=== PATIENT | male | born 1950 | race African-American/Black ===

== ENCOUNTER 2020-08-18 12:31 | Inpatient (IN) | payer MEDICARE, MEDICAID ==
[~2020-08-18] VITALS: Ht 188 cm; Wt 82.6 kg
[2020-08-18] MEDS ORDERED: AZITHROMYCIN 500MG/ 250ML 250 ML IV ONE (13:15)
[2020-08-18] MEDS ORDERED: methylPREDNISolone SOD SUCC 125 MG/2 ML VL IV ONE (13:15)
[2020-08-18 15:46] LABS: Basophils # (auto) 0.1 10 ^3/uL (0-0.2); Basophils % (auto) 0.4 % (0.0-2.0); Eosinophils # (auto) 0 10 ^3/uL (0-0.8); Hematocrit 38.5 % (41.0-53.0); Hemoglobin 12.9 g/dL (13.5-17.5); Lymphocytes # (auto) 0.6 10 ^3/uL (0.4-5.4); Lymphocytes % (auto) 4.8 % (10.0-50.0); Mean Corpuscular Hemoglobin 30.9 pg (28.0-32.0); Mean Corpuscular Hgb Conc. 33.6 g/dL (32.0-36.0); Monocytes # (auto) 0.7 10 ^3/uL (0-1.3); Monocytes % (auto) 5.5 % (0.0-12.0); Neutrophils # (auto) 11.7 10 ^3/uL (1.6-8.6); Neutrophils % (auto) 89.3 % (37.0-80.0); Nucleated Red Blood Cells % 0.5 %; Platelet Count (auto) 256 10^3/uL (140-450); Red Blood Cells 4.18 10^6/uL (4.5-5.90); Red Cell Distribution Width 14.5 % (11.8-14.3); White Blood Cell 13.1 10^3/uL (4.4-10.8)
[2020-08-18 16:30] LABS: Alanine Aminotransferase 113 U/L (16-61); Albumin 2.4 g/dL (3.4-5.0); Alkaline Phosphatase 277 U/L (45-117); Anion Gap 6 (5-15); Aspartate Aminotransferase 148 U/L (15-37); BUN/Creatinine Ratio 23.9; Bilirubin, Total 1.6 mg/dL (0.2-1.0); Blood Alcohol < 3.0 mg/dL (0-5); Blood Urea Nitrogen 26 mg/dL (7-18); Calcium 8.3 mg/dL (8.5-10.1); Carbon Dioxide 27 mmol/L (21-32); Chloride 101 mmol/L (98-107); GFR African American 87 mL/min; GFR Non-African American 72 mL/min; Glucose 133 mg/dL (74-106); Potassium 4.1 mmol/L (3.5-5.1); Sodium 134 mmol/L (136-145)
[2020-08-18] MEDS ORDERED: cefTRIAXone 1GM/50ML D5W 50 ML IV SCH (17:27)
[2020-08-18] MEDS ORDERED: REMDESIVIR PER PHARMACY 0 ML IV SCH (17:30)
[2020-08-18] MEDS ORDERED: ACETAMINOPHEN 500 MG TAB PO PRN (17:30)
[2020-08-18] MEDS ORDERED: IOHEXOL 350 MG/ML 100ML IJ ONE (17:30)
[2020-08-18] MEDS ORDERED: NITROGLYCERIN 0.4 MG SL TAB SL PRN (17:30)
[2020-08-18] MEDS ORDERED: ONDANSETRON HCL 4 MG/2 ML VIAL IV PRN (17:30)
[2020-08-18] MEDS ORDERED: MORPHINE SULF INJ 2 MG/ML SYRINGE 1ML IV PRN (17:30)
[2020-08-18] MEDS ORDERED: HYDROcodone-ACET 5/325MG TAB PO PRN (17:30)
[2020-08-18] MEDS ORDERED: ENOXAPARIN SOD 80 MG/0.8ML SYRINGE SC SCH (17:59)
[2020-08-18] MEDS: BUDESONIDE (INHALATION) 180 MCG IH IN SCH (19:55)
[2020-08-18] MEDS: ALBUTEROL SULF HFA 90MCG INH 200DOSE IN PRN (19:59)
[2020-08-18 21:30] LABS: Lactate Dehydrogenase 640 U/L (87-241)
[2020-08-18 21:35] LABS: CRP High Sensitivity > 19.0 mg/dL (< 0.3)
[2020-08-19] MEDS ORDERED: LORazepam 2MG/ML-1ML VIAL ONE ×2 (07:05→14:04)
[2020-08-19] MEDS ORDERED: HALOPERIDOL LACTATE 5 MG/ML INJ VIAL ONE (07:05)
[2020-08-19] MEDS ORDERED: diphenhdrAMINE HCL 50 MG/1 ML VL ONE (07:05)
[2020-08-19] MEDS ORDERED: LORazepam 2MG/ML-1ML VIAL IM ONE (07:15)
[2020-08-19] MEDS ORDERED: diphenhdrAMINE HCL 50 MG/1 ML VL IM ONE (07:15)
[2020-08-19] MEDS ORDERED: HALOPERIDOL LACTATE 5 MG/ML INJ VIAL IM ONE (07:15)
[2020-08-19 08:01] LABS: Hematocrit 38.3 % (41.0-53.0); Mean Corpuscular Hemoglobin 30.9 pg (28.0-32.0); Mean Corpuscular Hgb Conc. 33.8 g/dL (32.0-36.0); Mean Corpuscular Volume 91.3 fL (80.0-100.0); Platelet Count (auto) 228 10^3/uL (140-450); Red Blood Cells 4.19 10^6/uL (4.5-5.90); Red Cell Distribution Width 14.6 % (11.8-14.3); White Blood Cell 15.9 10^3/uL (4.4-10.8)
[2020-08-19 08:07] LABS: Basophils % (manual) 0 (0.0-2.0); Blast Cells 0; Eosinophils % (manual) 0 (0-7); Myelocytes % 0; Promyelocytes % 0; Reactive Lymphocytes 0
[2020-08-19] MEDS: FAMOTIDINE 20 MG TAB PO SCH (08:36)
[2020-08-19] MEDS: DexAMETHasone SOD PHOS 10MG/1ML VIAL INJ IV SCH (08:36)
[2020-08-19] MEDS: CHOLECALCIFEROL (VITD3) 2,000 UNIT CAP PO SCH (08:36)
[2020-08-19] MEDS: AZITHROMYCIN 500MG/ 250ML 250 ML IV SCH (08:36)
[2020-08-19] MEDS: ZINC SULFATE 220mg CAP or TAB PO SCH (08:36)
[2020-08-19] MEDS: ASCORBIC ACID 1,000 MG TAB PO SCH (08:36)
[2020-08-19 08:38] LABS: Calcium 8.7 mg/dL (8.5-10.1)
[2020-08-19 08:40] LABS: BUN/Creatinine Ratio 28.3
[2020-08-19 09:06] LABS: Band Neutrophils % (manual) 6; Lymphocytes % (manual) 6 (10.0-50.0); Metamyelocytes % 4; Monocytes % (manual) 6 (0-12)
[2020-08-19] MEDS: ALBUTEROL SULF HFA 90MCG INH 200DOSE IN PRN ×2 (09:52→20:54)
[2020-08-19] MEDS: BUDESONIDE (INHALATION) 180 MCG IH IN SCH ×3 (09:52→22:00)
[2020-08-19 10:48] LABS: Urine Bacteria NONE SEEN /hpf (None Seen); Urine Blood 2+ /uL (Negative); Urine Mucus FEW (None Seen); Urine Specific Gravity 1.035 (1.001-1.035); Urine WBC 2 /hpf (0 - 3)
[2020-08-19 12:34] LABS: Cholesterol 229 mg/dL (< 200); Triglycerides 321 mg/dL (< 150)
[2020-08-19 12:37] LABS: HDL Cholesterol 15 mg/dL (40-59); LDL Cholesterol 132 mg/dL (< 100)
[2020-08-19 12:41] LABS: Amphetamine Screen, Urine NEGATIVE (NEGATIVE); Barbiturate Scree,Urine NEGATIVE (NEGATIVE); Benzodiazephine Screen, Urine NEGATIVE (NEGATIVE); Cannabinoid Screen, Urine NEGATIVE (NEGATIVE); Cocaine Screen, Urine NEGATIVE (NEGATIVE); Opiate Scree,Urine NEGATIVE (NEGATIVE); Phencyclidine Screen, Urine NEGATIVE (NEGATIVE)
[2020-08-19] MEDS ORDERED: LORazepam 2MG/ML-1ML VIAL IV ONE (14:30)
[2020-08-19] MEDS ORDERED: REMDESIVIR 200 MG in NS 210ml LOADING DOSE ADULT IV ONE (15:00)
[2020-08-19] MEDS: ENOXAPARIN SOD 80 MG/0.8ML SYRINGE SC SCH (15:20)
[2020-08-19] MEDS: LORazepam 2MG/ML-1ML VIAL IV PRN (23:05)
[2020-08-20] MEDS ORDERED: cefTRIAXone 1GM/50ML D5W 50 ML IV SCH (02:00)
[2020-08-20] MEDS: ENOXAPARIN SOD 80 MG/0.8ML SYRINGE SC SCH ×2 (04:00→15:30)
[2020-08-20] MEDS: LORazepam 2MG/ML-1ML VIAL IV PRN ×2 (05:14→16:59)
[2020-08-20] MEDS: BUDESONIDE (INHALATION) 180 MCG IH IN SCH ×2 (06:25→20:18)
[2020-08-20 07:08] LABS: Basophils # (auto) 0 10 ^3/uL (0-0.2); Basophils % (auto) 0.1 % (0.0-2.0); Eosinophils # (auto) 0 10 ^3/uL (0-0.8); Hematocrit 39.9 % (41.0-53.0); Hemoglobin 13.3 g/dL (13.5-17.5); Lymphocytes # (auto) 0.5 10 ^3/uL (0.4-5.4); Lymphocytes % (auto) 2.6 % (10.0-50.0); Mean Corpuscular Hemoglobin 30.4 pg (28.0-32.0); Mean Corpuscular Hgb Conc. 33.3 g/dL (32.0-36.0); Mean Corpuscular Volume 91.3 fL (80.0-100.0); Monocytes # (auto) 0.6 10 ^3/uL (0-1.3); Monocytes % (auto) 3.3 % (0.0-12.0); Neutrophils # (auto) 17.4 10 ^3/uL (1.6-8.6); Platelet Count (auto) 269 10^3/uL (140-450); Red Blood Cells 4.37 10^6/uL (4.5-5.90); Red Cell Distribution Width 14.6 % (11.8-14.3); White Blood Cell 18.5 10^3/uL (4.4-10.8)
[2020-08-20 07:39] LABS: Albumin 2.3 g/dL (3.4-5.0); Calcium 8.3 mg/dL (8.5-10.1); Potassium 3.9 mmol/L (3.5-5.1)
[2020-08-20] MEDS: DexAMETHasone SOD PHOS 10MG/1ML VIAL INJ IV SCH (07:45)
[2020-08-20] MEDS: AZITHROMYCIN 500MG/ 250ML 250 ML IV SCH (07:45)
[2020-08-20] MEDS: ZINC SULFATE 220mg CAP or TAB PO SCH (07:45)
[2020-08-20] MEDS: ASCORBIC ACID 1,000 MG TAB PO SCH (07:45)
[2020-08-20] MEDS: FAMOTIDINE 20 MG TAB PO SCH (07:45)
[2020-08-20] MEDS: CHOLECALCIFEROL (VITD3) 2,000 UNIT CAP PO SCH (07:45)
[2020-08-20 07:46] LABS: BUN/Creatinine Ratio 31.4; Bilirubin, Total 0.9 mg/dL (0.2-1.0); Total Protein 6.7 g/dL (6.4-8.2)
[2020-08-20] MEDS ORDERED: FUROSEMIDE 20 MG/2 ML VIAL IV SCH (10:00)
[2020-08-20] MEDS ORDERED: FUROSEMIDE 40 MG/4 ML VIAL ONE (10:22)
[2020-08-20] MEDS: FUROSEMIDE 40 MG/4 ML VIAL IV SCH (10:30)
[2020-08-20] MEDS: DOXYCYCLINE 100MG/250ML 250 ML IV SCH ×2 (10:41→21:30)
[2020-08-20 12:11] LABS: INR 1.48 (0.9-1.15); Partial Thromboplastin Time 26.2 sec (23.0-31.2)
[2020-08-20] MEDS: REMDESIVIR 100mg 100 MG in SODIUM CHL 0.9% 230 ML IV SCH (15:27)
[2020-08-20] MEDS: PIPERACILLIN-TAZOB 3.375GM 100 ML IV SCH ×2 (15:28→22:45)
[2020-08-20 17:59] VITALS: BP 134/81
[2020-08-20] MEDS ORDERED: LORazepam 2MG/ML-1ML VIAL ONE (19:51)
[2020-08-20] MEDS ORDERED: diphenhdrAMINE HCL 50 MG/1 ML VL ONE (19:51)
[2020-08-20] MEDS: ALBUTEROL SULF HFA 90MCG INH 200DOSE IN PRN (20:18)
[2020-08-21] VITALS: BP 120/75
[2020-08-21] MEDS: LORazepam 2MG/ML-1ML VIAL IV PRN ×3 (03:06→21:07)
[2020-08-21] MEDS: ENOXAPARIN SOD 80 MG/0.8ML SYRINGE SC SCH ×2 (04:08→15:21)
[2020-08-21] MEDS: PIPERACILLIN-TAZOB 3.375GM 100 ML IV SCH ×2 (05:50→21:42)
[2020-08-21 07:08] LABS: Hematocrit 38.6 % (41.0-53.0); Hemoglobin 12.9 g/dL (13.5-17.5); Mean Corpuscular Hemoglobin 30.6 pg (28.0-32.0); Mean Corpuscular Hgb Conc. 33.4 g/dL (32.0-36.0); Mean Corpuscular Volume 91.5 fL (80.0-100.0); Platelet Count (auto) 308 10^3/uL (140-450); Red Blood Cells 4.21 10^6/uL (4.5-5.90); Red Cell Distribution Width 14.8 % (11.8-14.3); White Blood Cell 14.9 10^3/uL (4.4-10.8)
[2020-08-21 07:51] LABS: Basophils % (manual) 0 (0.0-2.0); Blast Cells 0; Eosinophils % (manual) 0 (0-7); Metamyelocytes % 0; Promyelocytes % 0; Reactive Lymphocytes 0
[2020-08-21 07:52] VITALS: BP 125/82
[2020-08-21 08:02] LABS: Potassium 3.8 mmol/L (3.5-5.1)
[2020-08-21 08:03] VITALS: BP 125/82
[2020-08-21 08:15] LABS: Albumin 2.3 g/dL (3.4-5.0); BUN/Creatinine Ratio 27.2; Bilirubin, Total 0.9 mg/dL (0.2-1.0); Calcium 7.8 mg/dL (8.5-10.1); Total Protein 6.3 g/dL (6.4-8.2)
[2020-08-21] MEDS: ZINC SULFATE 220mg CAP or TAB PO SCH (09:55)
[2020-08-21] MEDS: FAMOTIDINE 20 MG TAB PO SCH (09:55)
[2020-08-21] MEDS: CHOLECALCIFEROL (VITD3) 2,000 UNIT CAP PO SCH (09:56)
[2020-08-21] MEDS: ASCORBIC ACID 1,000 MG TAB PO SCH (09:56)
[2020-08-21] MEDS: BUDESONIDE (INHALATION) 180 MCG IH IN SCH ×2 (10:00→21:45)
[2020-08-21] MEDS: DexAMETHasone SOD PHOS 10MG/1ML VIAL INJ IV SCH (10:01)
[2020-08-21] MEDS: FUROSEMIDE 40 MG/4 ML VIAL IV SCH (10:02)
[2020-08-21] MEDS: DOXYCYCLINE 100MG/250ML 250 ML IV SCH (10:03)
[2020-08-21 12:01] LABS: Band Neutrophils % (manual) 21; Lymphocytes % (manual) 7 (10.0-50.0); Monocytes % (manual) 1 (0-12); Myelocytes % 5
[2020-08-21] MEDS ORDERED: ACETAMINOPHEN 650 mg PER 20.3 mL UD PO ONE (13:30)
[2020-08-21] MEDS ORDERED: diphenhdrAMINE HCL 50 MG/1 ML VL IV ONE (13:30)
[2020-08-21] MEDS ORDERED: methylPREDNISolone SOD SUCC 40 MG/ML VL IV ONE (13:30)
[2020-08-21] MEDS ORDERED: TOCILIZUMAB 400 MG in SODIUM CHL 0.9% 80 ML IV ONE (14:00)
[2020-08-21] MEDS ORDERED: ACETAMINOPHEN 650 MG RECT SUPP PR ONE (14:00)
[2020-08-21] MEDS: REMDESIVIR 100mg 100 MG in SODIUM CHL 0.9% 230 ML IV SCH (15:06)
[2020-08-21] MEDS: MORPHINE SULF INJ 2 MG/ML SYRINGE 1ML IV PRN (15:20)
[2020-08-21] MEDS ORDERED: LIDOCAINE 1% (LOCAL ANESTH.) PF 5ml SDV ID ONE (16:15)
[2020-08-21 16:24] VITALS: BP 145/61
[2020-08-21] MEDS ORDERED: AMINO ACID INFUSION IN D10W 1,000 ML IV NR (21:30)
[2020-08-21] MEDS: SODIUM CHLOR 0.9% PF (SALINE LOCK) 10ML VIAL/SYR IV SCH (21:43)
[2020-08-21 21:45] LABS: Folate (Folic Acid) 8.04 ng/mL (5.38-24)
[2020-08-22] VITALS: BP_SYST 122; BP_SYST 124; BP_DIAS 63; BP_DIAS 74
[2020-08-22] MEDS ORDERED: DEXTROSE (50%) 50ML SYRG IV SCH
[2020-08-22] MEDS: InsuLIN REG 1unit/0.01ml Soln (100units/ml) SC SCH ×4 (00:52→17:06)
[2020-08-22] MEDS: LORazepam 2MG/ML-1ML VIAL IV PRN (05:29)
[2020-08-22] MEDS: PIPERACILLIN-TAZOB 3.375GM 100 ML IV SCH ×2 (05:29→15:27)
[2020-08-22] MEDS: ENOXAPARIN SOD 80 MG/0.8ML SYRINGE SC SCH ×2 (05:30→17:06)
[2020-08-22] MEDS: ACCU-CHEK COMFORT CURVE STRIP VI SCH ×4 (05:30→17:06)
[2020-08-22] MEDS: ALBUTEROL SULF HFA 90MCG INH 200DOSE IN PRN ×2 (06:53→21:22)
[2020-08-22] MEDS: BUDESONIDE (INHALATION) 180 MCG IH IN SCH ×2 (06:53→21:22)
[2020-08-22 07:35] LABS: Hematocrit 41.8 % (41.0-53.0); Hemoglobin 13.8 g/dL (13.5-17.5); Mean Corpuscular Hemoglobin 30.4 pg (28.0-32.0); Mean Corpuscular Volume 92.1 fL (80.0-100.0); Platelet Count (auto) 359 10^3/uL (140-450); Red Blood Cells 4.54 10^6/uL (4.5-5.90); Red Cell Distribution Width 15.2 % (11.8-14.3); White Blood Cell 11.6 10^3/uL (4.4-10.8)
[2020-08-22 07:45] LABS: Basophils % (manual) 0 (0.0-2.0); Blast Cells 0; Eosinophils % (manual) 0 (0-7); Promyelocytes % 0; Reactive Lymphocytes 0
[2020-08-22] MEDS: MORPHINE SULF INJ 2 MG/ML SYRINGE 1ML IV PRN (07:54)
[2020-08-22 07:56] LABS: Albumin 2.5 g/dL (3.4-5.0); Calcium 8.3 mg/dL (8.5-10.1); Magnesium 3.5 mg/dL (1.6-2.6); Potassium 4.1 mmol/L (3.5-5.1)
[2020-08-22 08:00] VITALS: BP 119/90
[2020-08-22 08:04] LABS: BUN/Creatinine Ratio 29.6; Bilirubin, Total 0.9 mg/dL (0.2-1.0); Phosphorus 4.4 mg/dL (2.5-4.90); Pre Albumin 22.2 mg/dL (20.0-40.0); Total Protein 6.9 g/dL (6.4-8.2)
[2020-08-22 09:38] LABS: Band Neutrophils % (manual) 2; Lymphocytes % (manual) 7 (10.0-50.0); Metamyelocytes % 1; Monocytes % (manual) 3 (0-12); Myelocytes % 2
[2020-08-22] MEDS ORDERED: ACETAMINOPHEN 650 mg PER 20.3 mL UD PO ONE (10:00)
[2020-08-22] MEDS: ASCORBIC ACID 1,000 MG TAB PO SCH (10:00)
[2020-08-22] MEDS ORDERED: diphenhdrAMINE HCL 50 MG/1 ML VL IV ONE (10:00)
[2020-08-22] MEDS: ZINC SULFATE 220mg CAP or TAB PO SCH (10:00)
[2020-08-22] MEDS: CHOLECALCIFEROL (VITD3) 2,000 UNIT CAP PO SCH (10:00)
[2020-08-22] MEDS ORDERED: ACETAMINOPHEN 650 MG RECT SUPP PR ONE (10:00)
[2020-08-22] MEDS ORDERED: TPN PER PHARMACY 0 ML IV SCH (10:30)
[2020-08-22] MEDS ORDERED: TOCILIZUMAB 400 MG in SODIUM CHL 0.9% 80 ML IV ONE (10:30)
[2020-08-22] MEDS: HALOPERIDOL LACTATE 5 MG/ML INJ VIAL IM PRN ×2 (10:40→20:53)
[2020-08-22] MEDS: FUROSEMIDE 40 MG/4 ML VIAL IV SCH (10:44)
[2020-08-22] MEDS: FAMOTIDINE (10MG/ML) 2ML VL IV SCH (10:45)
[2020-08-22] MEDS: DexAMETHasone SOD PHOS 10MG/1ML VIAL INJ IV SCH (10:46)
[2020-08-22] MEDS: SODIUM CHLOR 0.9% PF (SALINE LOCK) 10ML VIAL/SYR IV SCH ×2 (11:04→21:25)
[2020-08-22 16:00] VITALS: BP 97/63
[2020-08-22] MEDS: REMDESIVIR 100mg 100 MG in SODIUM CHL 0.9% 230 ML IV SCH (17:05)
[2020-08-22] MEDS: TPN PER PHARMACY IV NR ×5 (21:22)
[2020-08-23] MEDS: PIPERACILLIN-TAZOB 3.375GM 100 ML IV SCH ×4 (00:17→21:38)
[2020-08-23] MEDS: ENOXAPARIN SOD 80 MG/0.8ML SYRINGE SC SCH ×2 (04:59→17:12)
[2020-08-23] MEDS: InsuLIN REG 1unit/0.01ml Soln (100units/ml) SC SCH ×5 (06:00→20:29)
[2020-08-23] MEDS: ACCU-CHEK COMFORT CURVE STRIP VI SCH ×5 (06:22→20:23)
[2020-08-23 07:32] LABS: Potassium 4.6 mmol/L (3.5-5.1)
[2020-08-23 07:40] LABS: Albumin 2.5 g/dL (3.4-5.0); BUN/Creatinine Ratio 30.3; Bilirubin, Total 0.9 mg/dL (0.2-1.0); Calcium 7.9 mg/dL (8.5-10.1); Magnesium 3.3 mg/dL (1.6-2.6); Phosphorus 3.7 mg/dL (2.5-4.90); Total Protein 6.4 g/dL (6.4-8.2)
[2020-08-23 08:00] VITALS: BP 120/65
[2020-08-23] MEDS: HALOPERIDOL LACTATE 5 MG/ML INJ VIAL IM PRN (08:27)
[2020-08-23] MEDS: FAMOTIDINE (10MG/ML) 2ML VL IV SCH (09:13)
[2020-08-23] MEDS: ZINC SULFATE 220mg CAP or TAB PO SCH (09:13)
[2020-08-23] MEDS: FUROSEMIDE 40 MG/4 ML VIAL IV SCH (09:13)
[2020-08-23] MEDS: DexAMETHasone SOD PHOS 10MG/1ML VIAL INJ IV SCH (09:13)
[2020-08-23] MEDS: CHOLECALCIFEROL (VITD3) 2,000 UNIT CAP PO SCH (09:13)
[2020-08-23] MEDS: SODIUM CHLOR 0.9% PF (SALINE LOCK) 10ML VIAL/SYR IV SCH ×2 (09:14→21:30)
[2020-08-23] MEDS: ASCORBIC ACID 1,000 MG TAB PO SCH (09:14)
[2020-08-23] MEDS: BUDESONIDE (INHALATION) 180 MCG IH IN SCH ×2 (10:00→19:53)
[2020-08-23] MEDS ORDERED: DEXTROSE (50%) 50ML SYRG IV PRN (16:00)
[2020-08-23 16:06] VITALS: BP 122/63
[2020-08-23] MEDS: REMDESIVIR 100mg 100 MG in SODIUM CHL 0.9% 230 ML IV SCH (17:13)
[2020-08-23] MEDS: TPN PER PHARMACY IV NR ×5 (19:58)
[2020-08-23] MEDS ORDERED: TPN PER PHARMACY IV NR ×7 (20:00)
[2020-08-24] VITALS: BP 126/83
[2020-08-24] MEDS: ACCU-CHEK COMFORT CURVE STRIP VI SCH ×5 (00:27→23:38)
[2020-08-24] MEDS: InsuLIN REG 1unit/0.01ml Soln (100units/ml) SC SCH ×5 (00:30→23:38)
[2020-08-24] MEDS: ENOXAPARIN SOD 80 MG/0.8ML SYRINGE SC SCH ×2 (03:49→16:22)
[2020-08-24] MEDS: PIPERACILLIN-TAZOB 3.375GM 100 ML IV SCH ×3 (05:31→21:51)
[2020-08-24] MEDS: BUDESONIDE (INHALATION) 180 MCG IH IN SCH ×2 (06:08→19:47)
[2020-08-24 08:00] VITALS: BP 108/64
[2020-08-24] MEDS: CHOLECALCIFEROL (VITD3) 2,000 UNIT CAP PO SCH (10:00)
[2020-08-24] MEDS: FUROSEMIDE 40 MG/4 ML VIAL IV SCH (10:00)
[2020-08-24] MEDS: ASCORBIC ACID 1,000 MG TAB PO SCH (10:00)
[2020-08-24] MEDS: ZINC SULFATE 220mg CAP or TAB PO SCH (10:00)
[2020-08-24] MEDS ORDERED: DEXTROSE (50%) 50ML SYRG IV PRN (12:00)
[2020-08-24] MEDS ORDERED: ERGOCALCIFEROL 50,000 UNIT(1.25MG) CAP PO ONE (12:15)
[2020-08-24] MEDS: HALOPERIDOL LACTATE 5 MG/ML INJ VIAL IM PRN (12:43)
[2020-08-24] MEDS: SODIUM CHLOR 0.9% PF (SALINE LOCK) 10ML VIAL/SYR IV SCH ×2 (12:46→21:51)
[2020-08-24] MEDS: DexAMETHasone SOD PHOS 10MG/1ML VIAL INJ IV SCH (12:47)
[2020-08-24] MEDS: FAMOTIDINE (10MG/ML) 2ML VL IV SCH (12:47)
[2020-08-24 12:51] LABS: Hemoglobin 13.5 g/dL (13.5-17.5)
[2020-08-24 12:53] LABS: Hematocrit 46.5 % (41.0-53.0); Mean Corpuscular Hemoglobin 31.7 pg (28.0-32.0); Mean Corpuscular Volume 109.4 fL (80.0-100.0); Platelet Count (auto) 265 10^3/uL (140-450); Red Blood Cells 4.25 10^6/uL (4.5-5.90); Red Cell Distribution Width 17.2 % (11.8-14.3); White Blood Cell 8.9 10^3/uL (4.4-10.8)
[2020-08-24 12:54] LABS: Basophils % (manual) 0 (0.0-2.0); Blast Cells 0; Metamyelocytes % 0; Promyelocytes % 0; Reactive Lymphocytes 0
[2020-08-24 14:35] LABS: Band Neutrophils % (manual) 2; Eosinophils % (manual) 4 (0-7); Lymphocytes % (manual) 7 (10.0-50.0); Monocytes % (manual) 1 (0-12); Myelocytes % 1
[2020-08-24 15:46] VITALS: BP 111/72
[2020-08-24 17:07] LABS: Albumin 2.5 g/dL (3.4-5.0); BUN/Creatinine Ratio 30.1; Magnesium 2.8 mg/dL (1.6-2.6)
[2020-08-24 17:12] LABS: Phosphorus 3.1 mg/dL (2.5-4.90); Total Protein 6.5 g/dL (6.4-8.2)
[2020-08-24] MEDS: ALBUTEROL SULF HFA 90MCG INH 200DOSE IN PRN (19:49)
[2020-08-25] VITALS: BP 95/53
[2020-08-25] MEDS: ENOXAPARIN SOD 80 MG/0.8ML SYRINGE SC SCH ×2 (04:13→18:05)
[2020-08-25] MEDS: InsuLIN REG 1unit/0.01ml Soln (100units/ml) SC SCH ×3 (05:58→18:05)
[2020-08-25] MEDS: ACCU-CHEK COMFORT CURVE STRIP VI SCH ×3 (05:58→18:00)
[2020-08-25] MEDS: PIPERACILLIN-TAZOB 3.375GM 100 ML IV SCH ×3 (05:58→21:34)
[2020-08-25 08:00] VITALS: BP 92/47
[2020-08-25 08:29] LABS: Hematocrit 42.1 % (41.0-53.0); Mean Corpuscular Hgb Conc. 33.1 g/dL (32.0-36.0); Mean Corpuscular Volume 93.5 fL (80.0-100.0); Platelet Count (auto) 282 10^3/uL (140-450); Red Blood Cells 4.51 10^6/uL (4.5-5.90); Red Cell Distribution Width 15.2 % (11.8-14.3); White Blood Cell 8.9 10^3/uL (4.4-10.8)
[2020-08-25 08:45] LABS: BUN/Creatinine Ratio 29.4; Calcium 8.4 mg/dL (8.5-10.1); Potassium 4.1 mmol/L (3.5-5.1)
[2020-08-25 08:51] LABS: Basophils % (manual) 0 (0.0-2.0); Blast Cells 0; Metamyelocytes % 0; Promyelocytes % 0; Reactive Lymphocytes 0
[2020-08-25] MEDS: ASCORBIC ACID 1,000 MG TAB PO SCH (10:00)
[2020-08-25] MEDS: CHOLECALCIFEROL (VITD3) 2,000 UNIT CAP PO SCH (10:00)
[2020-08-25] MEDS: FUROSEMIDE 40 MG/4 ML VIAL IV SCH (10:00)
[2020-08-25] MEDS: ZINC SULFATE 220mg CAP or TAB PO SCH (10:00)
[2020-08-25] MEDS: BUDESONIDE (INHALATION) 180 MCG IH IN SCH ×2 (11:15→19:53)
[2020-08-25] MEDS: DexAMETHasone SOD PHOS 10MG/1ML VIAL INJ IV SCH (11:15)
[2020-08-25] MEDS: SODIUM CHLOR 0.9% PF (SALINE LOCK) 10ML VIAL/SYR IV SCH ×2 (11:18→21:34)
[2020-08-25] MEDS: FAMOTIDINE (10MG/ML) 2ML VL IV SCH (11:18)
[2020-08-25 13:01] LABS: Lymphocytes % (manual) 5 (10.0-50.0)
[2020-08-25 13:02] LABS: Band Neutrophils % (manual) 2; Eosinophils % (manual) 4 (0-7); Monocytes % (manual) 5 (0-12); Myelocytes % 1
[2020-08-25 16:00] VITALS: BP 90/58
[2020-08-25] MEDS: ALBUTEROL SULF HFA 90MCG INH 200DOSE IN PRN (19:53)
[2020-08-26] VITALS: BP 94/60
[2020-08-26] MEDS: ACCU-CHEK COMFORT CURVE STRIP VI SCH ×4 (00:24→18:28)
[2020-08-26] MEDS: ENOXAPARIN SOD 80 MG/0.8ML SYRINGE SC SCH ×2 (04:30→15:41)
[2020-08-26] MEDS: PIPERACILLIN-TAZOB 3.375GM 100 ML IV SCH ×3 (06:20→21:26)
[2020-08-26] MEDS: InsuLIN REG 1unit/0.01ml Soln (100units/ml) SC SCH ×4 (06:28→18:34)
[2020-08-26 08:00] VITALS: BP 98/58
[2020-08-26] MEDS: CHOLECALCIFEROL (VITD3) 2,000 UNIT CAP PO SCH (10:00)
[2020-08-26] MEDS: FUROSEMIDE 40 MG/4 ML VIAL IV SCH (10:00)
[2020-08-26] MEDS: ASCORBIC ACID 1,000 MG TAB PO SCH (10:00)
[2020-08-26] MEDS: ZINC SULFATE 220mg CAP or TAB PO SCH (10:00)
[2020-08-26] MEDS: ALBUTEROL SULF HFA 90MCG INH 200DOSE IN PRN ×2 (10:19→18:35)
[2020-08-26] MEDS: BUDESONIDE (INHALATION) 180 MCG IH IN SCH ×2 (10:19→18:35)
[2020-08-26] MEDS: SODIUM CHLOR 0.9% PF (SALINE LOCK) 10ML VIAL/SYR IV SCH ×2 (10:32→21:26)
[2020-08-26] MEDS: DexAMETHasone SOD PHOS 10MG/1ML VIAL INJ IV SCH (10:33)
[2020-08-26] MEDS: FAMOTIDINE (10MG/ML) 2ML VL IV SCH (10:34)
[2020-08-26 16:00] VITALS: BP 90/51
[2020-08-27] VITALS: BP 100/69
[2020-08-27] MEDS: ACCU-CHEK COMFORT CURVE STRIP VI SCH ×4 (00:36→17:59)
[2020-08-27] MEDS: PIPERACILLIN-TAZOB 3.375GM 100 ML IV SCH ×3 (05:34→21:16)
[2020-08-27] MEDS: InsuLIN REG 1unit/0.01ml Soln (100units/ml) SC SCH ×4 (05:35→18:04)
[2020-08-27 05:58] LABS: Basophils # (auto) 0 10 ^3/uL (0-0.2); Basophils % (auto) 0.3 % (0.0-2.0); Eosinophils # (auto) 0.1 10 ^3/uL (0-0.8); Eosinophils % (auto) 2.5 % (0.0-7.0); Hematocrit 39.6 % (41.0-53.0); Hemoglobin 13.2 g/dL (13.5-17.5); Lymphocytes # (auto) 0.7 10 ^3/uL (0.4-5.4); Lymphocytes % (auto) 11.3 % (10.0-50.0); Mean Corpuscular Hemoglobin 31.4 pg (28.0-32.0); Mean Corpuscular Hgb Conc. 33.4 g/dL (32.0-36.0); Mean Corpuscular Volume 93.9 fL (80.0-100.0); Monocytes # (auto) 0.5 10 ^3/uL (0-1.3); Monocytes % (auto) 8.4 % (0.0-12.0); Neutrophils # (auto) 4.7 10 ^3/uL (1.6-8.6); Neutrophils % (auto) 77.5 % (37.0-80.0); Platelet Count (auto) 249 10^3/uL (140-450); Red Blood Cells 4.22 10^6/uL (4.5-5.90); White Blood Cell 6.1 10^3/uL (4.4-10.8)
[2020-08-27 06:31] LABS: BUN/Creatinine Ratio 23.5; Calcium 8.2 mg/dL (8.5-10.1); Potassium 4.3 mmol/L (3.5-5.1)
[2020-08-27] MEDS: BUDESONIDE (INHALATION) 180 MCG IH IN SCH ×2 (06:47→19:59)
[2020-08-27] MEDS: ALBUTEROL SULF HFA 90MCG INH 200DOSE IN PRN ×2 (06:47→19:59)
[2020-08-27 08:00] VITALS: BP 97/57
[2020-08-27] MEDS: ASCORBIC ACID 1,000 MG TAB PO SCH (10:00)
[2020-08-27] MEDS: FUROSEMIDE 40 MG/4 ML VIAL IV SCH (10:00)
[2020-08-27] MEDS: CHOLECALCIFEROL (VITD3) 2,000 UNIT CAP PO SCH (10:00)
[2020-08-27] MEDS: ZINC SULFATE 220mg CAP or TAB PO SCH (10:00)
[2020-08-27] MEDS: FAMOTIDINE (10MG/ML) 2ML VL IV SCH (10:59)
[2020-08-27] MEDS: DexAMETHasone SOD PHOS 4 MG/1ML SDV INJ IV SCH (10:59)
[2020-08-27] MEDS: SODIUM CHLOR 0.9% PF (SALINE LOCK) 10ML VIAL/SYR IV SCH ×2 (11:00→21:16)
[2020-08-27] MEDS: ENOXAPARIN SOD 80 MG/0.8ML SYRINGE SC SCH ×2 (11:00→21:16)
[2020-08-27 16:00] VITALS: BP 88/47
[2020-08-27 23:41] VITALS: BP 116/59
[2020-08-28] MEDS: ACCU-CHEK COMFORT CURVE STRIP VI SCH ×7 (00:19→23:46)
[2020-08-28] MEDS: InsuLIN REG 1unit/0.01ml Soln (100units/ml) SC SCH ×4 (05:31→21:42)
[2020-08-28] MEDS: PIPERACILLIN-TAZOB 3.375GM 100 ML IV SCH (05:31)
[2020-08-28] MEDS: ALBUTEROL SULF HFA 90MCG INH 200DOSE IN PRN ×2 (06:43→19:20)
[2020-08-28] MEDS: BUDESONIDE (INHALATION) 180 MCG IH IN SCH ×2 (06:43→19:20)
[2020-08-28 08:00] VITALS: BP 99/51
[2020-08-28] MEDS: FUROSEMIDE 40 MG/4 ML VIAL IV SCH (09:59)
[2020-08-28] MEDS: DexAMETHasone SOD PHOS 4 MG/1ML SDV INJ IV SCH (09:59)
[2020-08-28] MEDS: ZINC SULFATE 220mg CAP or TAB PO SCH (10:00)
[2020-08-28] MEDS: FAMOTIDINE 20 MG TAB PO SCH (10:00)
[2020-08-28] MEDS: CHOLECALCIFEROL (VITD3) 2,000 UNIT CAP PO SCH (10:00)
[2020-08-28] MEDS: ENOXAPARIN SOD 80 MG/0.8ML SYRINGE SC SCH ×2 (10:00→21:47)
[2020-08-28] MEDS: ASCORBIC ACID 1,000 MG TAB PO SCH (10:00)
[2020-08-28] MEDS: SODIUM CHLOR 0.9% PF (SALINE LOCK) 10ML VIAL/SYR IV SCH ×2 (10:00→21:47)
[2020-08-28] MEDS ORDERED: DEXTROSE (50%) 50ML SYRG IV PRN (12:00)
[2020-08-28 15:39] VITALS: BP 110/60
[2020-08-28] MEDS: DOXYCYCLINE 100 MG TAB/CAP PO SCH (21:47)
[2020-08-29] VITALS: BP 81/55
[2020-08-29] MEDS: ACCU-CHEK COMFORT CURVE STRIP VI SCH ×4 (05:27→11:44)
[2020-08-29] MEDS: ALBUTEROL SULF HFA 90MCG INH 200DOSE IN PRN (06:03)
[2020-08-29] MEDS: BUDESONIDE (INHALATION) 180 MCG IH IN SCH (06:03)
[2020-08-29] MEDS: InsuLIN REG 1unit/0.01ml Soln (100units/ml) SC SCH ×3 (06:21→11:51)
[2020-08-29 08:00] VITALS: BP_SYST 106; BP_SYST 90; BP_DIAS 55; BP_DIAS 71
[2020-08-29] MEDS: FAMOTIDINE 20 MG TAB PO SCH (09:56)
[2020-08-29] MEDS: DOXYCYCLINE 100 MG TAB/CAP PO SCH (09:56)
[2020-08-29] MEDS: ZINC SULFATE 220mg CAP or TAB PO SCH (09:56)
[2020-08-29] MEDS: ENOXAPARIN SOD 80 MG/0.8ML SYRINGE SC SCH (09:57)
[2020-08-29] MEDS: CHOLECALCIFEROL (VITD3) 2,000 UNIT CAP PO SCH (09:57)
[2020-08-29] MEDS: ASCORBIC ACID 1,000 MG TAB PO SCH (09:57)
[2020-08-29] MEDS: FUROSEMIDE 40 MG/4 ML VIAL IV SCH (10:00)
[2020-08-29] MEDS ORDERED: DexAMETHasone 4 MG TAB PO SCH (10:00)
[2020-08-29] MEDS: SODIUM CHLOR 0.9% PF (SALINE LOCK) 10ML VIAL/SYR IV SCH (11:43)
[2020-08-29] MEDS ORDERED: SODIUM CHLORIDE 0.9% 250 ML IV ONE (13:15)
[2020-08-29 14:31] VITALS: BP_SYST 127; BP_SYST 90; BP_DIAS 55
== END 2020-08-29 15:30 | disposition home or self-care (01) | DRG 720 ==
LOC: EDBD 12:31 → ER 12:31 → EDUNIT# 12:31 → OVERFLOW 12:32 → TELE-E-ADS 08-20 17:48
PROVIDERS: ADMIT Nurse Practitioner Acute Care; ATTEND Internal Medicine
PROC: XW033E5 Introduction of Remdesivir Anti-infective into Peripheral Vein, Percutaneous Approach, New Technology Group 5 (ICD-10-PCS; 2020-08-19)
PROC: XW033H5 Introduction of Tocilizumab into Peripheral Vein, Percutaneous Approach, New Technology Group 5 (ICD-10-PCS; 2020-08-21)
PROC: 02HV33Z Insertion of Infusion Device into Superior Vena Cava, Percutaneous Approach (ICD-10-PCS; 2020-08-21)
PROC: XW13325 Transfusion of Convalescent Plasma (Nonautologous) into Peripheral Vein, Percutaneous Approach, New Technology Group 5 (ICD-10-PCS; principal; 2020-08-23)
DX: A41.89 Other specified sepsis (principal); U07.1 COVID-19; J12.82 Pneumonia due to coronavirus disease 2019; J96.01 Acute respiratory failure with hypoxia; I48.0 Paroxysmal atrial fibrillation; I21.4 Non-ST elevation (NSTEMI) myocardial infarction; E55.9 Vitamin D deficiency, unspecified; D89.839 Cytokine release syndrome, grade unspecified; E78.5 Hyperlipidemia, unspecified; G93.40 Encephalopathy, unspecified; Z79.82 Long term (current) use of aspirin
CPT/HCPCS: 36415; 36569; 36600; 70450; 71045; 71275; 80048; 80053; 80061; 80307; 80320; 81001; 82040; 82140; 82306; 82607; 82728; 82746; 82805; 82962; 83036; 83605; 83615; 83735; 83880; 84100; 84425; 84439; 84443; 84478; 84484; 85007; 85025; 85027; 85379; 85610; 85730; 86141; 86850; 86900; 86901; 87040; 87426; 87804; 92610; 93005; 93306; 93970; 94640; 97110; 97116; 97530; 99291; G0378; J0696; J1100; J1815; J2405; J2543; J3490